=== PATIENT | female | born 1955 | race Caucasian/White ===

== ENCOUNTER → 2024-09-05 07:50 | Outpatient (REF) | payer MEDICARE, SELFPAY ==
--- NOTE | 2024-09-05 | CA_ITS ---
Acquisition Time: 2024-09-05 08:46:11 Total Exercise Time: 00:05:31 Test Indications: CP Medications: ALBUTEROL INHALER Protocol: ALLEN Max HR: 139 BPM 91% of Pred: 152 BPM Max BP: 134/80 mmHG Max Work Load: 4.6 METS Exercise stress test with exercise 5 min 31 sec of Allen stage 1 ( stage held due to inability to walk at faster pace), achieving 91% MPHR, with mild sob, no chest discomfort, without arrythmia, with normotensive response to exercise, without EKG changes meeting criteria for ischemia. Nuclear images pending. Test reviewed with Dr Hernandez. Referred By: Elias Javed Electronically Signed By: ESPERANZA SPENCE
--- OUTSIDE RECORDS SUMMARY | 2024-09-05 07:52 | XMS_ITS | Encounter Summary ---
Author Organization [employer] Address [address] [facility] [address] [place] [address] Care Team Providers Care Vice President Of Sales Name Role Phone Elias Ta MD Primary Care Prov ider Encounter Details Date Type Department Care Team (Latest Contact Info) Description 08/19/2024 Travel Social History Tobacco Use Types Packs/Day Years Used Date Smoking Tobacco: Never Smokeless Tobacco: Never Alcohol Use Standard Drinks/Week Comments Never 0 (1 standard drink = 0.6 oz pur e alcohol) Comments Unknown Sex and Gender Information Value Date Recorded Sex Assigned at Female 08/19/2024 8:18 AM EST Legal Sex Female 8:43 AM EDT Gender Identity Female 08/19/2024 8:18 AM EST Sexual Orientation Straight 08/19/2024 8: 18 AM EST documented as of this encounter Plan of Treatment Upcoming Encounters Date Type Department Care Team (Late st Contact Info) Description 10/18/2024 8:45 AM EDT Office Visit [facility] [address] [place] [address] Elias Ta MD [address] [place] [address] documented as of this encounter Visit Diagnoses Not on filedocumented in this encounter Care Teams Vice President Of Sales Relationship Specialty Start Date End Date Elias Ta MD [address] [place] [address] PCP - General Internal Medicine 08/19/24 documented as of this encounter
--- OUTSIDE RECORDS SUMMARY | 2024-09-05 07:52 | XMS_ITS | Encounter Summary ---
Author Organization [employer] Address 75 [facility] [address] [place] [address] Care Team Providers Care Seam Stay Stitcher Name Role Phone Elias Ta MD Primary Care Prov ider Reason for Referral * Consultation (Routine) - Authorized Specialty Diagnoses / Procedures Referred By Kaylee blount Referred To Contact Cardiology Diagnoses Other chest pain Elias Ta MD [address] [place] [address] Phone: tel: fax: Sunny Gomes MD [address] [address] Phone: tel: fax: Referral ID Status Reason Start Date Expiration Date Visits Requested Visits Authorized [id number] Authorized Specialty Services Required 08/19/2024 08/19/2025 1 1 * Imaging (Routine) - Pending Review Specialty Diagnoses / Procedures Referred By Kaylee blount Referred To Contact Diagnoses Other chest pain Procedures Stress test with myocardial perfusion Elias Ta MD [address] [place] [address] Phone: tel: fax: [address] Phone: tel: fax: Referral ID Status Reason Start Date Expiration Date V isits Requested Visits Authorized [id number] Pending Review 08/19/2024 08/19/2025 3 3 Encounter Details Date Type Department Care Team (Late st Contact Info) Description 08/19/2024 9:00 AM EST Telemedicine [facility] MED & PEDS [address] [place] [address] Elias Ta MD [address] [place] [address] Encounter for medical examination to establish care (Primary Dx); Other chest pain Social History Tobacco Use Types Packs/Day Years Used Date Smoking Tobacco: Never Smokeless Tobacco: Never Tobacco Cessation:Counseling Given: Not Answered Alcohol Use Standard Drinks/Week Comments Never 0 (1 standard drink = 0.6 oz pur e alcohol) Comments Unknown Sex and Gender Information Value Date Recorded Sex Assigned at Female 08/19/2024 8:18 AM EST Legal Sex Female 8:43 AM EDT Gender Identity Female 08/19/2024 8:18 AM EST Sexual Orientation Straight 08/19/2024 8: 18 AM EST documented as of this encounter Progress Notes * Elias Javed MD - 08/19/2024 9:00 AM EST Subjective Patient ID: Malia Tejeda is a 69 y.o. female who presents for No chief complaint on file.. HPI Patient was scheduled for a televisit to establish medical care Review of Systems Constitutional: Negative for chills, fatigue and fever. Respiratory: Negative for cough and shortness of breath. Cardiovascular: Negative for chest pain and palpitations. Objective Physical Exam Neurological: General: No focal deficit present. Mental Status: She is oriented to person, place, and time. Psychiatric: Mood and Affect: Mood normal. Behavior: Behavior normal. 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 All: percocet Meds: - [id number] Other chest pain Seen at [facility], could not complete workup, pending stress test, will place order and refer to cardiology Relevant Orders Stress test with myocardial perfusion Referral to Cardiology documented in this encounter Miscellaneous Notes * Assessment & Plan Note - Elias Javed MD - 08/19/2024 8:48 AM ESTAssociated Problem(s): Other chest pain Seen at [facility], could not complete workup, pending stress test, will place order and refer to cardiology * Assessment & Plan Note - Elias Javed MD - 08/19/2024 8:43 AM ESTAssociated Problem(s): Encounter for medical examination to establish care Last pcp visit 2 years ago ER: chest pain June 2024 Hospitalization: chest pain 2024 PMHx: asthma, Pshx: 2005 carpal tunnel/tendonitis, 2005 bilateral ear, 1998 VIVEK/bso, tummy tck 2004, total knee replacement right 2021, 2022 eye cataract, 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 All: percocet Meds: - G5A1P4 documented in this encounter Plan of Treatment Upcoming Encounters Date Type Department Care Team (Late st Contact Info) Description 10/18/2024 8:45 AM EDT Office Visit [facility] MED & PEDS [address] [place] [address] Elias Ta MD [address] [place] [address] Scheduled Referrals Name Type Priority Associated Diagnoses Order Schedule Referral to Cardiology Outpatient Referral Routine Other chest pain Expected: 08/19/2024 (Approximate), Expires: 08/19/2025 documented as of this encounter Visit Diagnoses Diagnosis Encounter for medical examination to establish care- Primary Other chest pain documented in this encounter Care Teams Seam Stay Stitcher Relationship Specialty Start Date End Date Elias Ta MD [address] [place] [id number] PCP - General Internal Medicine 08/19/24 documented as of this encounter
--- OUTSIDE RECORDS SUMMARY | 2024-09-05 07:52 | XMS_ITS | Clinical Summary ---
Author Organization [employer] Address 75 [facility] 7t [place] [address] Care Team Providers Care Treer Name Role Phone Elias Ta MD Primary Care Prov ider Allergies No known active allergies Medications albuterol 108 (90 Base) MCG/ACT inhaler Inhale 2 puffs every 6 (six) hours if needed for wheezing. 18 g 11 08/19/2024 Active Blood Pressure kit 1 kit Once per day. 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 All: percocet Meds: - G5A1P4 Other chest pain 08/19/2024 Assessment & Plan (08/19/2024 8:48 AM EST): Seen at [facility], could not complete workup, pending stress test, will place order and refer to cardiology Encounters Date Type Department Care Team Description 08/31/2024 Telephone [facility] MEDICINE [address] [place] [address] Elias Ta MD FYI 08/19/2024 9:00 AM EST Telemedicine [facility] MED & PEDS [address] [place] [address] Elias Ta MD Encounter for medical examination to establish care (Primary Dx); Other chest pain 08/19/2024 Travel from Last 3 Months Family History Medical History Relation Name Comments Depression Father Angina Mother Cancer Neg Hx Relation Name Status Comments Father Mother Social History Tobacco Use Types Packs/Day Years [...] Orientation Straight 08/19/2024 8: 18 AM EST Plan of Treatment Upcoming Encounters Date Type Department Care Team ([facility] st Contact Info) Description 10/18/2024 8:45 AM EDT Office Visit [facility] MED & PEDS [address] [place] [address] Elias Ta MD [address] [place] [address] Health Maintenance Due Date Last Done Comments CT Colonography 1956 Colonoscopy 1956 Colorectal Cancer Screening 1956 Depression Screening 1956 FIT DNA/Cologuard 1956 FIT 1956 FOBT 1956 Lipid Panel 1956 SDOH Screening 1956 Sigmoidoscopy 1956 Alcohol/Substance Use Screening 1968 Hepatitis C Screening 1974 Hepatitis A Vaccines (1 of 2 - Risk 2-dose series) 1975 Pneumococcal Vaccine: 50+ Years (1 of 2 - PCV) 1975 Mammogram 1996 Zoster Vaccines (1 of 2) 2006 Hepatitis B Vaccines (1 of 3 - Risk 3-dose series) 2016 RSV Patients and Patients Aged 60 years or older (1 - Risk 60-74 years 1-dose series) 2016 DTaP/Tdap/Td Vaccines (2 - T d or Tdap) 01/06/2024 01/05/2014 COVID-19 Vaccine (3 - 4-2 5 season) 2024 03/31/2021, 03/01/2021 Influenza Vaccine (#1) 2024 , 04/27/2013 Tobacco Screening 08/19/2025 08/19/2024 HIB Vaccines Aged Out No longer eligi ble based on patient's age to complete this topic HPV Vaccines Aged Out No longer eligi ble based on patient's age to complete this topic IPV Vaccines Aged Out No longer eligi ble based on patient's age to complete this topic Meningococcal Vaccine Aged Out No pablito sarah eligible based on patient's age to complete this topic RSV under 20 months Aged Out No longe r eligible based on patient's age to complete this topic Rotavirus Vaccines Aged Out No longer eligible based on patient's age to complete this topic Insurance [facility] MEDICARE ADVANTAGE HMO Care Teams Treer Relationship Specialty Start Date End Date Elias Ta MD [address] [place] [address] PCP - General Internal Medicine 08/19/24
--- OUTSIDE RECORDS SUMMARY | 2024-09-05 07:52 | XMS_ITS | Encounter Summary ---
Author Organization [employer] Address 75 [facility] 7t [place] [address] Care Team Providers Care Gold Miner Blasting Name Role Phone Elias Ta MD Primary Care Prov ider Reason for Visit * Reason Onset Date Comments FYI 08/31/2024 Encounter Details Date Type Department Care Team (Late st Contact Info) Description 08/31/2024 Telephone [facility] MEDICINE [address] [place] [address] Elias Ta MD [address] [place], [place] [phone] FYI Social History Tobacco Use Types Packs/Day Years [...] AM EST documented as of this encounter Miscellaneous Notes * Telephone Encounter - Mary Gonzales RN - 08/31/2024 12:48 PM EST Office is not responsible for calling insurance to name PCP. Pt needs to call to let them know. * Telephone Encounter - Melvina Edmondson - 08/31/2024 11:37 AM EST Tc from pt stating pcp or nurses should call to [facility] to clarify info regarding pt. Pt says it's so they can assign him as PCP. [phone] Pt's documented in this encounter Plan of Treatment Upcoming Encounters Date Type Department Care Team (Late st Contact Info) Description 10/18/2024 8:45 AM EDT Office Visit [facility] MED & PEDS [address] [place], [place] [phone] Elias Ta MD [address] [place] [address] documented as of this encounter Visit Diagnoses Not on filedocumented in this encounter Care Teams Gold Miner Blasting Relationship Specialty Start Date End Date Elias Ta MD [address] [place] [address] PCP - General Internal Medicine 08/19/24 documented as of this encounter
== END ==
LOC: HO.CARD 07:50
PROVIDERS: PCP Internal Medicine; Visit Provider Internal Medicine
DX: R07.89 Other chest pain (principal)
CPT/HCPCS: 78452; 93017; A9500

== ENCOUNTER → 2024-09-05 08:46 | Outpatient (BNV) | payer MEDICARE, SELFPAY | PROVIDERS: PCP Internal Medicine; Visit Provider Nurse Practitioner Family | DX: R06.02 Shortness of breath (principal) | CPT/HCPCS: 78452; 93016; 93018 ==

== ENCOUNTER 2024-11-15 07:27 | Outpatient (AMB) | payer OTHER, MEDICARE, MEDICAID, SELFPAY ==
--- OUTSIDE RECORDS SUMMARY | 2024-11-15 07:29 | XMS_ITS | Encounter Summary ---
Author Organization [employer] Address [address] [facility] 7t [place] [address] Care Team Providers Care Staffing Coordinator Name Role Phone Elias Ta MD Primary Care Prov ider Reason for Visit * Reason Onset Date Comments Medication Question 10/20/2024 Encounter Details Date Type Department Care Team ([facility] st Contact Info) Description 10/20/2024 Telephone [facility] MEDICINE [address] [place] [address] Elias Ta MD [address] [place], [place] [phone] Medication Question Social History Tobacco Use Types Packs/Day Years Used Date Smoking Tobacco: Never Smokeless Tobacco: Never Alcohol Use Standard Drinks/Week Comments Never 0 (1 standard drink = 0.6 oz pur e alcohol) Depression Answer Date Recorded Patient Health Questionnaire-9 Score 0 09/21/2024 Patient Health Questionnaire-9 Score 0 09/21/2024 Last PHQ-9: Questionnaire Data Not on file 0 09/21/2024 Housing Stability Answer Date Recorded What is your housing situation today? I have paul soto 09/21/[address] you li ve. Do you have problems with any of the following? None of the above 09/21/2024 Food Insecurity Answer Date Recorded Within the past 12 months, y ou worried that your food would run out before you got money to buy more: Never True 09/21/2024 Within the past 12 months,th e food you bought just didn't last and you didn't have enough money to get more: Never True Transportation Answer Date Recorded In the past 12 months, has l ack of transportation kept you from medical appts, meetings, work or from getting things needed for daily living? No 09/21/2024 Utilities Answer Date Recorded In the past 12 months, has t he electric, gas, oil or water company threatened to shut off services in your home? No 09/21/2024 Depression Answer Date Recorded Patient Health Questionnaire-2 Score 0 09/21/2024 Internet Access Answer Date Recorded Internet Access Q1 Yes 09/21/2024 Internet Access Q2 Not on file 09/21/2024 Comments Unknown Sex and Gender Information Value Date Recorded Sex Assigned at Female 08/19/2024 8:18 AM EST Legal Sex Female 8:43 AM EDT Gender Identity Female 08/19/2024 8:18 AM EST Sexual Orientation Straight 08/19/2024 8: 18 AM EST documented as of this encounter Miscellaneous Notes * Telephone Encounter - Dana Alejandro RN - 10/20/2024 2:46 PM EDT TC to [facility] in [place]. Per pharmacist patient insurance requires everything to be One Touch Verio * Telephone Encounter - Precious Ni - 10/20/2024 12:54 PM EDT Tc from Pharmacy requesting to re-send medication below as One Touch Verio - Blood Glucose Monitoring Suppl (FreeStyle [place] Lite) w/Device kit - FREESTYLE LITE test strip - Lancets misc documented in this encounter Plan of Treatment Upcoming Encounters Date Type Department Care Team (Late st Contact Info) Description 11/23/2024 10:15 AM EDT Telemedicine [facility] MED & PEDS [address] [place], [place] [phone] Elias Ta MD [address] [place] [address] documented as of this encounter Visit Diagnoses Not on filedocumented in this encounter Additional Health Concerns Assessment Noted Time PHQ-9 Depression Total Score: 0 09/22/19 25 9:19 AM EDT documented as of this encounter Care Teams Staffing Coordinator Relationship Specialty Start Date End Date Elias Ta MD [address] [place] [address] PCP - General Internal Medicine 08/19/24 documented as of this encounter
--- OUTSIDE RECORDS SUMMARY | 2024-11-15 07:29 | XMS_ITS | Encounter Summary ---
Author Organization [employer] Address 75 [facility] 7t [place] [address] Care Team Providers Care Lead Section Supervisor Name Role Phone Elias Ta MD Primary Care Prov ider Reason for Visit * Reason Onset Date Comments Medication Question 11/03/2024 Encounter Details Date Type Department Care Team ([facility] st Contact Info) Description 11/03/2024 Telephone [facility] MEDICINE [address] [place] [address] Elias Ta MD [address] [place], [place] [phone] Medication Question Social History Tobacco Use Types [...] Telephone Encounter - Dana Alejandro RN - 11/03/2024 3:00 PM EDT Spoke with pharmacy. They stated insurance will only cover the One touch. Routing to provider for review. * Telephone Encounter - Melvina Edmondson - 11/03/2024 10:37 AM EDT Tc from Jennifer Franco requesting new scripts for: - Glucose device - Test strip - Lancets ONE TOUCH BRAND To be sent to: [id number] - [place], [place] - [address] [place] [address] AT [facility] & [facility] documented in this encounter Plan of Treatment Upcoming Encounters Date Type Department Care Team (Late st Contact Info) Description 11/23/2024 10:15 AM EDT Telemedicine [facility] MED & PEDS [address] [place], [place] [phone] Elias Ta MD [address] [place] [address] documented as of this encounter Visit Diagnoses Not on filedocumented in this encounter Additional Health Concerns Assessment Noted Time PHQ-9 Depression Total Score: 0 09/22/19 9:19 AM EDT documented as of this encounter Care Teams Lead Section Supervisor Relationship Specialty Start Date End Date Elias Ta MD [address] [place] [id number] PCP - General Internal Medicine 08/19/24 documented as of this encounter
--- OUTSIDE RECORDS SUMMARY | 2024-11-15 07:29 | XMS_ITS | Encounter Summary ---
Author Organization [employer] Address [address] [facility] 7t [place] [address] Care Team Providers Care Bonderite Operator Name Role Phone Elias Ta MD Primary Care Prov ider Reason for Visit * Reason Onset Date Comments FYI 08/31/2024 Encounter Details Date Type Department Care Team (Late st Contact Info) Description 08/31/2024 Telephone [facility] MEDICINE [address] [place] [address] Elias Ta MD [address] [place], [place] [phone] FYI Social History Tobacco Use Types Packs/Day [...] stating pcp or nurses should call to [facility] to clarify info regarding pt. Pt says it's so they can assign him as PCP. [phone] Pt's documented in this encounter Plan of Treatment Upcoming Encounters Date Type Department Care Team (Late st Contact Info) Description 11/23/2024 10:15 AM EDT Telemedicine [facility] MED & PEDS [address] [place] [address] Elias Ta MD [address] [place] [address] documented as of this encounter Visit Diagnoses Not on filedocumented in this encounter Care Teams Bonderite Operator Relationship Specialty Start Date End Date Elias Ta MD [address] [place] [address] PCP - General Internal Medicine 08/19/24 documented as of this encounter
--- OUTSIDE RECORDS SUMMARY | 2024-11-15 07:29 | XMS_ITS | Clinical Summary ---
Author Organization [employer] Address [address] [facility] [address] [place] [address] Care Team Providers Care Ceo And Founder Name Role Phone Elias Ta MD Primary Care Prov ider Allergies No known active allergies Medications albuterol 108 (90 Base) MCG/ACT inhaler Inhale 2 puffs every 6 (six) hours if needed for wheezing. 18 g 11 5 08/19/19 26 Active Blood Pressure kit 1 kit Once per day. 1 kit 5 Active metFORMIN (Glucophage) 500 MG tablet Take 1 tablet (500 mg) by mouth with breakfast and with evening meal. 60 tablet 11 5 10/19/19 26 Active FREESTYLE LITE test strip Use to test blood sugar 2 times daily 100 each 12 5 10/19/19 26 Active Lancets misc Use to test blood sugar 2 times daily 100 each 5 Active Blood Glucose Monitoring Suppl (FreeStyle Selma Lite) w/Device kit Use to test blood sugar 2 times daily 1 kit 5 Active glucose blood (OneTouch Ultra) test strip Use to test blood sugar 2 times daily 100 each 12 5 11/04/19 26 Active Blood Glucose Monitoring Suppl (ONE TOUCH ULTRA 2) w/Device kit Use to test blood sugar 2 times daily 1 kit 5 Active Lancets misc 1 Units 2 times daily. 100 each 5 Active Active Problems Problem Noted Date Diagnosed Date Type 2 diabetes mellitus wit hout complication, without long-term current use of insulin 10/18/2024 Assessment & Plan (10/18/2024 9:53 AM EDT): A1c >9.0%, discussed importance of diet, will start on metformin 500mg bid, follow up in 1 month, she was previously prescribed DM treatmetn but she refused to accept diagnosis, follow up in 1 month Elevated blood pressure reading 10/18/2024 Assessment & Plan (10/18/2024 9:54 AM EDT): Home blood pressure reading have remained below 130/80, encouraged to keep a low sodium diet and exercise as tolerated, keep bp log, follow up in 1 month Encounter for medical examination to establish c [...] Other chest pain 08/19/2024 Assessment & Plan (09/21/2024 10:15 AM EDT): Patient underwent stress test, normal findings, pending cardiology evalaution, Patient was requesting letter to return to work, but hospital discharge refers she has htn/dm/hypercholesterolemia, Will follow up in office to decide if patient can return to work Assessment & Plan (08/19/2024 8:48 AM EST): Seen at [facility], could not complete workup, pending stress test, will place order and refer to cardiology Encounters Date Type Department Care Team Description 11/03/2024 Orders Only [facility] [address] [place] [address] Elias Ta MD 11/03/2024 Telephone [facility] [address] [place] [address] Elias Ta MD Medication Question 10/20/2024 Telephone [facility] [address] [place] [address] Elias Ta MD Medication Question 10/20/2024 Telephone [facility] [address] [place] [address] Elias Ta MD 10/18/2024 8:45 AM EDT Office Visit [facility] [address] [place] [address] Elias Ta MD Type 2 diabetes mellitus without complication, without long-term current use of insulin ([facility]) (Primary Dx); Elevated blood pressure reading 10/18/2024 Travel 09/21/2024 9:30 AM EDT Telemedicine [facility] [address] [place] [address] Elias Ta MD Other chest pain (Primary Dx) 09/21/2024 Travel 09/20/2024 Telephone [facility] [address] [place] [address] Elias Ta MD chart prep 09/19/2024 Telephone [facility] [address] [place] [address] Elias Ta MD Appointment Request 09/09/2024 Telephone [facility] [address] [place] [address] Elias Ta MD 08/31/2024 Telephone [facility] [address] [place] [address] Elias Ta MD FYI 08/19/2024 9:00 AM EST Telemedicine [facility] [address] [place] [address] Elias Ta MD Encounter for medical examination [...] Orientation Straight 08/19/2024 8: 18 AM EST Last Filed Vital Signs Vital Sign Reading Time Taken Comments Blood Pressure 131/78 10/18/2024 8:52 AM EDT Pulse 87 10/18/2024 8:52 AM EDT Temperature 36.6 ??C (97.9 ??F) 10/18/2024 8:52 AM ED T Respiratory Rate 20 10/18/2024 8:52 AM EDT Oxygen Saturation 97% 10/18/2024 8:52 AM EDT Inhaled Oxygen Concentration - - Weight 68.5 kg (151 lb) 10/18/2024 8:52 AM EDT Height - - Body Mass Index - - Plan of Treatment Upcoming Encounters Date Type Department Care Team ([facility] st Contact Info) Description 11/23/2024 10:15 AM EDT Telemedicine [facility] [address] [place] [address] Elias Ta MD [address] [place] [address] Health Maintenance Due Date Last Done Comments CT Colonography 1955 Colonoscopy 1955 Colorectal Cancer Screening 1955 FIT DNA/Cologuard 1955 FIT 1955 FOBT 1955 Lipid Panel 1955 Sigmoidoscopy 1956 Diabetes: Foot Exam 1966 Eye Exam 1966 Hepatitis C Screening 1974 Diabetes: Urine Protein Screening 1975 Hepatitis A Vaccines (1 of 2 - [...] Tdap) 01/06/2024 01/05/2014 COVID-19 Vaccine (3 - 2023-2 5 season) 2024 03/31/2021, 03/01/2021 Influenza Vaccine (#1) 2024 , 04/27/2013 Diabetes: Hemoglobin A1C 01/17/2025 10/18/2024 Tobacco Screening 08/19/2025 08/19/2024 Alcohol/Substance Use Screening 09/21/2025 09/21/2024 Depression Screening 09/21/2025 09/21/2024, 09/21/2024 SDOH Screening 09/21/2025 09/21/2024 HIB Vaccines Aged Out No longer eligi ble based on patient's age to complete this topic HPV Vaccines Aged Out No longer eligi ble based on patient's age to complete this topic IPV Vaccines Aged Out No longer eligi ble based on patient's age to complete this topic Meningococcal B Vaccine Aged Out No l onger eligible based on patient's age to complete this topic Meningococcal Vaccine Aged Out No pablito sarah eligible based on patient's age to complete this topic RSV under 20 months Aged Out No longe r eligible based on patient's age to complete this topic Rotavirus Vaccines Aged Out No longer eligible based on patient's age to complete this topic Procedures Procedure Name Priority Date/Time Associated Diagnosis Comments POCT GLYCATED HEMOGLOBIN, TOTAL Routine 10/18/2024 9:49 AM EDT Type 2 diabetes mellitus without complication, without long-term current use of insulin ([facility]) POCT GLUCOSE Routine 10/18/2024 9:48 AM EDT Type 2 diabetes mellitus without complication, without long-term current use of insulin ([facility]) STRESS TEST WITH MYOCARDIAL PERFUSION Routine 09/05/2024 8:48 AM EDT Other chest pain from Last 3 Months Results * (ABNORMAL) POCT HGB A1C (10/18/2024 9:49 AM EDT) Pathologist [facility] Hemoglobin A1C 9.3(A) 4.0 - 6.0 % QC Media Lot # [id number] Lot# Expiration Date ,026 Blood 10/18/2024 9:49 AM EDT Elias Javed MD POINT OF CARE TEST ENTER/EDIT ORDERABLES Final Result * (ABNORMAL) POCT Glucose (10/18/2024 9:48 AM EDT) Pathologist [facility] Glucose Blood, POC 282(A) 60 - 200 mg/dL QC Media Lot # [id number] Lot# Expiration Date 732,025 Blood Capillary blood specimen / Unknown 10/18/2024 9:48 AM EDT Elias Javed MD POINT OF CARE TEST ENTER/EDIT ORDERABLES Final Result * Stress test with myocardial perfusion (09/05/2024 8:48 AM EDT) 09/05/2024 8:48 AM EDT Narrative [facility] - 09/08/2024 12:17 PM EDT ? [facility] ?[address] ?[place], [place] [address] ?Nuclear Medicine Report ? Signed ? Patient: Nikhil,Malia ?MR#: [id number] ?? 6 ? : 1955 ?Acct:[id number] ? Age/Sex: 69 / F ?ADM Date: 09/05/24 ? Loc: HO.CARD ? Attending Dr: Elias Javed MD ? Ordering Physician: Elias Ta MD ?? Date of Service: 09/05/24 ?? Procedure(s): NM cardiolite stress test ?? Accession Number(s): [id number] ? cc: Elias Ta MD ? EXERCISE MYOCARDIAL PERFUSION STUDY ? INDICATION: ?? Chest pain ? TECHNIQUE: ? The patient was brought in for an exercise perfusion study on ?? 09/05/2024. Patient performed exercise as per Moses protocol and was ?? injected ??25 mCi of sestamibi once target heart rate was achieved. ?? Images were obtained using the SPECT gamma camera interlaced with the ?? gating device. Images were obtained in supine position. ? Resting perfusion study was performed on 09/07/2024. Patient was ?? administered 25 mCi of sestamibi intravenously at rest. Images were ?? then obtained in supine position. Total DLP 105 mGy-cm. ? Images were processed with the software and compared side to side in ?? short axis, horizontal long axis and vertical long axis views. ? FINDINGS: ? Raw aquisition reviewed. ? The stress perfusion study showed ??no significant perfusion ?? abnormality. Both uncorrected as well as CT attenuation corrected ?? images were reviewed. The gated study shows normal LV systolic function ?? with calculated LVEF of 62%. LV cavity is normal in size. The gated ?? study shows normal ??wall thickening and contraction of segments. ? Resting study shows no significant perfusion abnormality. Gating at ?? rest reveals normal wall motion with ejection fraction at 72%. ? The findings are consistent with no clear reversible or fixed perfusion ?? abnormality. ? NM/NM cardiolite stress test ?? IMPRESSION: ? 1. ??Myocardial perfusion imaging study shows normal myocardial ?? perfusion. ?? 2. ??Gated LVEF is 62% during stress and 70% during rest. ?? 3. Transient ischemic dilatation not present. ? EKG component of the test reported separately. ? Electronically signed by: ??Yunior Hernandez MD ??09/08/2024 12:15 ?? PM EDT RP ? Dictated By: ?Yunior Hernandez MD ? Signed By: ?<Electronically signed by Yunior Hernandez MD in OV> ?09/08/24 1215 ? DD/ 0848 ? TD/TT: 09/07/24 0850 ? Weigher And Grader: ? Procedure Note [place], Image - 09/08/2024 [place] [address] Nuclear Medicine Report Signed Patient: Buffy Tejeda#: [id number] 6 : 1955cct:[id number] Age/Sex: 69 / FADM Date: 09/05/24 Loc: [facility] Attending Dr: Elias Javed MD Ordering Physician: Elias Ta MD Date of Service: 09/05/24 Procedure(s): NM cardiolite stress test Accession Number(s): [id number] cc: Elias Ta MD EXERCISE MYOCARDIAL PERFUSION STUDY INDICATION: Chest pain TECHNIQUE: The patient was brought in for an exercise perfusion study on 09/05/2024. Patient performed exercise as per Moses protocol and was injected 25 mCi of sestamibi once target heart rate was achieved. Images were obtained using the SPECT gamma camera interlaced with the gating device. Images were obtained in supine position. Resting perfusion study was performed on 09/07/2024. Patient was administered 25 mCi of sestamibi intravenously at rest. Images were then obtained in supine position. Total DLP 105 mGy-cm. Images were processed with the software and compared side to side in short axis, horizontal long axis and vertical long axis views. FINDINGS: Raw aquisition reviewed. The stress perfusion study showed no significant perfusion abnormality. Both uncorrected as well as CT attenuation corrected images were reviewed. The gated study shows normal LV systolic function with calculated LVEF of 62%. LV cavity is normal in size. The gated study shows normal wall thickening and contraction of segments. Resting study shows no significant perfusion abnormality. Gating at rest reveals normal wall motion with ejection fraction at 72%. The findings are consistent with no clear reversible or fixed perfusion abnormality. NM/NM cardiolite stress test IMPRESSION: 1. Myocardial perfusion imaging study shows normal myocardial perfusion. 2. Gated LVEF is 62% during stress and 70% during rest. 3. Transient ischemic dilatation not present. EKG component of the test reported separately. Electronically signed by: Yunior Hernandez MD 09/08/2024 12:15 PM EDT RP Dictated By: Yunior Hernandez MD Signed By: <Electronically signed by Yunior Hernandez MD inOV> 09/08/24 1215 DD/ 0848 TD/TT: 09/07/24 0850 Weigher And Grader: us Elias Javed MD CV STRESS PROCEDUR ES Edited Result - Final [facility] [address] [place] [address] from Last 3 Months Insurance [employer] HMO Care Teams Ceo And Founder Relationship Specialty Start Date End Date LrElias Lopez MD [address] [place] [id number] PCP - General Internal Medicine 08/19/24
--- NOTE | 2024-11-15 08:30 | MHC.OFFVIS ---
Vital Signs 11/15/24 08:31 Height 4 ft 11 in Weight 148 lb 9.465 oz BMI 30.0 BP 130/62 Blood Pressure Location Lt brachial Position Sitting Pulse 74 Pulse Source Monitor Intake Visit Reasons: MAJOR GENERAL/Dr. Lr/Chest pain Delivery Table Operator Required: Yes Delivery Table Operator Language: Ladle Liner Name: voyce/frisian/ Accompanied by: Self / Same As Patient Allergies perfume Adverse Reaction (Mild, Unverified 03/15/20 16:36) HEADACHES,DIZZY Medication List - Last Reconciled 11/15/24 by Yunior Hernandez MD No Known Home Meds HPI Comments Details: Malia is here for consultation regarding chest pains. Few months back, it seems that she had an episode of chest discomfort and that led to hospitalization at [facility]. She states that she has had acid reflux type symptoms at different times related to food intake but no clear-cut cardiac history. Per [facility] discharge summary, mentioned of burning chest pain, dizziness, vomiting, some reproducible in nature. It seems that they tried to do a stress test but patient had signed out against that. She states she did not get any further chest pain after that and she is back to normal self. Active with no limitations. No exertional intolerance. She has listed comorbidities but does not seem to be any medications for any of them. 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 [facility] Medical History (Updated 11/15/24 @ 08:54 by Yunior Hernandez MD) Gastritis Hypertension Hyperlipidemia Type 2 diabetes mellitus Chronic GERD Asthma Family History (Updated 11/15/24 @ 08:34 by Анна Hdz CMA) Mother No problems noted. Father No problems noted. Social History (Updated 11/15/24 @ 08:34 by Анна Hdz CMA) Alcohol intake: never Patient Tobacco Use Status: Never used Tobacco Review of Systems Const Denies chills, Denies fatigue, Denies fever(s), Denies frequent falls, Denies weakness, Denies weight gain and Denies weight loss ENT Denies dizziness Card Denies chest pain, Denies leg edema, Denies lightheadedness, Denies palpitations, Denies dyspnea, Denies dyspnea on exertion and Denies orthopnea Resp Denies cough, Denies dyspnea and Denies dyspnea on exertion GI Denies bloating and Denies change in bowel habits Musc Denies muscle weakness, Denies numbness and Denies tingling Neuro Denies dizziness, Denies frequent falls, Denies numbness, Denies tingling and Denies weakness Endo Denies fatigue and Denies palpitations Physical Exam Vital Signs: Last Vital Signs Pulse 74 11/15/24 08:31 BP 130/62 11/15/24 08:31 BMI result Body Mass Index 30.0 Const General: comfortable and no acute distress Orientation/consciousness: patient oriented x3 HEENT Other: Unremarkable Head: Yes normal to inspection Neck Neck: Yes normal visual inspection Chest Chest palpation & inspection: normal inspection of the chest Resp Auscultation: clear to auscultation bilaterally Cardio Palpation: normal PMI Heart sounds: S1 normal heart sound present, S2 normal heart sound present, no gallops, no murmurs and no rubs GI Palpation (GI): Soft to palpation Back/Spine/Pelvis Other: unremarkable Skin General skin exam: no rashes or lesions noted Neuro General: patient oriented x3 Extrem General: Yes normal to inspection Psych Mental Status: mental status grossly normal Office Procedures EKG Details: EKG with underlying sinus rhythm at 74/Min; sinus arrhythmias; leftward axis; right bundle-branch block; [place]. [id number], Complete Assessment & Plan Assessment & Plan (1) Precordial chest pain: Code(s): R07.2 - Precordial pain Category: Medical Plan Per [facility] records, high sensitivity troponin within range. Echocardiogram with LVEF of 50-55%. No significant valvular findings. In the stress test, she was able to exercise for 4.6 METS; reached 91% of target heart rate without any angina. No EKG evidence of ischemia. Normal perfusion. Overall, isolated episode of chest discomfort in the background of acid reflux. Unremarkable perfusion imaging. No recurring symptoms and unlimited exercise tolerance. In this instance, continue to observe. If indeed she gets recurrent pains, then we will reassessment. Discussed about this today and she agrees. Discussion Notes I discussed with the patient the results of her previous cardiac evaluations, which were reported as normal. I explained to her that her symptoms of chest pain appear to be linked to gastroesophageal reflux disease, especially given the correlation with dietary intake. I reassured her that her current capacity for exercise and absence of chest pain are positive indicators of her cardiac status. We discussed managing GERD through dietary changes and monitoring symptoms. I advised her to return if symptoms of chest pain recurred or worsened. Patient was informed and verbally consented to the use of an ambient scribe for clinic note documentation during this visit. Patient Instructions: - Continue your current diet but avoid foods that cause reflux. - Monitor for any return or worsening of chest pain. - Exercise as tolerated, with no restrictions. - Call us if chest pain returns or if there are any new symptoms. Coding Level of Care Code New Pt Level 4 (44203) Diagnoses Precordial chest pain R07.2 CPT Codes EKG - CPT: 14319-Bteiploudjefupnic, Complete ([id number])
[2024-11-15 08:31] VITALS: BP 130/62; PULSE 74
== END 2024-11-15 09:04 | disposition home or self-care (01) ==
PROVIDERS: PCP Internal Medicine; Visit Provider Internal Medicine
DX: R07.2 Precordial pain (principal); R94.31 Abnormal electrocardiogram [ECG] [EKG]
CPT/HCPCS: 93010; 99214

== ENCOUNTER → 2024-11-15 07:27 | Outpatient (BNVA) | payer MEDICARE, MEDICAID, SELFPAY | PROVIDERS: PCP Internal Medicine; Visit Provider Internal Medicine | DX: R07.9 Chest pain, unspecified (principal) | CPT/HCPCS: 93005 ==

== ENCOUNTER 2025-05-19 15:34 | Outpatient (REF) | payer MEDICARE, OTHER, SELFPAY ==
--- NOTE | ~2025-05-19 | US_ITS ---
EXAMINATION: US THYROID HISTORY: Incidental finding of a 1.7 cm thyroid nodule of the left lobe TECHNIQUE: Real-time grayscale ultrasound imaging was performed and images were reviewed. COMPARISON: There are no prior studies available for comparison. FINDINGS: SIZE: The right thyroid lobe measures 4.2 x 1.2 x 1.3 cm. The left thyroid lobe measures 4.4 x 2.1 x 1.8 cm. The isthmus measures 2 mm. FLOW: Flow to the gland is normal. ECHOGENICITY: The echotexture of the gland is heterogeneous. NODULES: There are nodules noted bilaterally as described below: Nodule #: 1 Location: Midportion of the right thyroid lobe measuring 4 x 2 x 3 mm. Shape: Wider than tall (0 points) Margins: Smooth (0 points) Echotexture: Hypoechoic (2 points) Composition: Solid (2 points) Calcifications: None (0 points) Total points: 4 TIRADS: TR4: Moderately suspicious. Nodule #: 2 Location: Lower pole of the right thyroid lobe measuring 1.5 x 1.2 x 0.7 cm. Shape: Taller than wide (3 points) Margins: Ill-defined (0 points) Echotexture: Hypoechoic (2 points) Composition: Mostly solid (2 points) Calcifications: None (0 points) Total points: 7 TIRADS: TR5: Highly suspicious. Nodule #: 3 Location: Midportion of the left thyroid lobe measuring 2.3 x 1.6 x 1.6 cm. Shape: Wider than tall (0 points) Margins: Ill-defined (0 points) Echotexture: Isoechoic (1 point) Composition: Mostly solid (2 points) Calcifications: Macrocalcifications (1 point) Total points: 4 TIRADS: TR4: Moderately suspicious. US/US thyroid IMPRESSION: Bilateral thyroid nodules as described. Both of the nodule at the lower pole of the right thyroid lobe (#2 above) and in the midportion of the left thyroid lobe (#3 above) should undergo fine-needle aspiration per ACR TI-RADS guidelines below. ACR TI-RADS Guidelines TR1 (0 points): Benign. No follow-up or biopsy required TR2 (2 points): Not Suspicious. No biopsy or follow up indicated TR3 (3 points): Mildly Suspicious. FNA if >= 2.5 cm, Follow if >= 1.5 cm TR4 (4-6 points): Moderately Suspicious. FNA if >= 1.5 cm, Follow if >= 1.0 cm TR5 (>=7 points): Highly Suspicious. FNA if >= 1.0 cm, Follow if >= 0.5 cm Electronically signed by: Angel Luis Holloway MD 05/22/2025 07:11 AM CONTRERAS
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
--- OUTSIDE RECORDS SUMMARY | 2025-05-19 15:38 | XMS_ITS | Encounter Summary ---
Author Organization [employer] Address [address] [facility] [address] [place] [address] Care Team Providers Care Furnace Door Tender Name Role Phone Elias Ta MD Primary Care Prov ider Reason for Visit * Reason Onset Date Comments FYI 08/31/2024 Encounter Details Date Type Department Care Team (Late st Contact Info) Description 08/31/2024 Telephone [facility] MEDICINE [address] [place] [address] Elias Ta MD [address] [place], [place] [phone] FYI Social History Tobacco Use Types Packs/Day [...] stating pcp or nurses should call to [facility] to clarify info regarding pt. Pt says it's so they can assign him as PCP. [phone] Pt's documented in this encounter Plan of Treatment Upcoming Encounters Date Type Department Care Team (Late st Contact Info) Description 08/07/2025 11:00 AM EST Office Visit [facility] OPTOMETRY [address] [place], [place] [phone] Helen Noel, OD [address] [place] [address] documented as of this encounter Visit Diagnoses Not on filedocumented in this encounter Care Teams Furnace Door Tender Relationship Specialty Start Date End Date Elias Ta MD [address] [place] [phone] PCP - General Internal Medicine 08/19/24 documented as of this encounter
--- OUTSIDE RECORDS SUMMARY | 2025-05-19 15:38 | XMS_ITS | Clinical Summary ---
Author Organization [facility] Address [address] [place] [address] Phone Care Team Providers Care Front Sight Attacher Name Role Phone Unavailable Primary Care Provider Unavailabl e Encounters Date Type Department Care Team Description 04/23/2025 8:24 AM EDT - 04/23/2025 11:59 PM EDT Hospital Encounter [facility] MRI [address] [place] [phone] Strain of muscle, fascia and tendon at neck level, initial encounter Discharge Disposition: Home or Self Care 04/23/2025 8:23 AM EDT - 04/23/2025 11:59 PM EDT Hospital Encounter [facility] MRI [address] [place] [address] Strain of muscle, fascia and tendon at neck level, initial encounter Discharge Disposition: Home or Self Care from Last 3 Months Social History Tobacco Use Types Packs/Day Years Used Date Smoking Tobacco: Never Assessed Comments Unknown Sex and Gender Information Value Date Recorded Sex Assigned at Not on file Legal Sex Female 11:36 PM EST Gender Identity Not on file Sexual Orientation Not on file Plan of Treatment Health Maintenance Due Date Last Done Comments Breast Cancer Screening 1956 Diabetes: Annual GFR (Glomer ular Filtration Rate) 1956 Diabetes: Annual Foot Exam 1966 Diabetes: Annual Retina Eye Exam 1966 DTaP,Tdap,and Td Vaccines (1 - Tdap) 1975 Pneumococcal Vaccine: 50+ Ye ars (1 of 1 - PCV) 2006 Zoster Vaccines (1 of 2) 2006 Cholesterol Screening (Lipid Panel) 06/01/2022 Falls Risk Assessment 06/01/2022 Hepatitis C Screening 06/01/2022 Medicare Annual Wellness Visit 06/01/2022 Osteoporosis Screening (Bone Density Screening) 06/01/2022 Social Influencers of Health Screening 06/01/2022 Depression Screening 06/29/2024 COVID-19 Vaccine (1 - 2024-2 6 season) 2025 Influenza Vaccine (#1) 2025 Diabetes: Annual Urine Albumin-Creatinine Ratio (uACR) 04/23/2025 Diabetes: Blood Sugar Contro l Test (HGBA1C) 04/23/2025 10/18/2024 Colorectal Cancer Screening: FIT-DNA (Cologuard) 12/10/2027 12/09/2024 RSV Immunization Adult Patie nts (1 - 1-dose 75+ series) 2031 HIB Vaccines Aged Out No longer eligi ble based on patient's age to complete this topic HPV Vaccines Aged Out No longer eligi ble based on patient's age to complete this topic Hepatitis A Vaccines Aged Out No long er eligible based on patient's age to complete this topic Hepatitis B Vaccines Aged Out No long er eligible based on patient's age to complete this topic IPV Vaccines Aged Out No longer eligi ble based on patient's age to complete this topic MMR Vaccines Aged Out No longer eligi ble based on patient's age to complete this topic Meningococcal ACWY Vaccine Aged Out N o longer eligible based on patient's age to complete this topic Meningococcal B Vaccine Aged Out No l onger eligible based on patient's age to complete this topic RSV Immunization Patients Un maria isabel 20 months Aged Out No longer eligible b ased on patient's age to complete this topic Varicella Vaccines Aged Out No longer eligible based on patient's age to complete this topic Procedures Procedure Name Priority Date/Time Associated Diagnosis Comments MR LUMBAR SPINE WO CONTRAST Routine 04/23/2025 9:41 AM EDT Strain of muscle, fascia and tendon at neck level, initial encounter MR CERVICAL SPINE WO CONTRAST Routine 04/23/2025 9:20 AM EDT Strain of muscle, fascia and tendon at neck level, initial encounter from Last 3 Months Results * MR Lumbar Spine wo Contrast (04/23/2025 9:41 AM EDT) Anatomical Region Laterality Modality L-spine, Spine Magnetic Resonan ce 04/24/2025 3:36 AM EDT Impressions 04/24/2025 3:45 AM EDT Scan sensitivity is degraded due to motion Multilevel lumbar spondylosis, most significant at L4-L5 -------- FINAL REPORT -------- Dictated By: Pati Gonzales Dictated Date: 04/24/2025 03:36 ET Assigned Physician: Pati Gonzales Reviewed and Electronically Signed By: Pati Gonzales Signed Date: 04/24/2025 03:45 ET Workstation ID: [id number] Transcribed By: Self Edit Transcribed Date: 04/24/2025 03:36 ET Narrative 04/24/2025 3:45 AM EDT INDICATION: strain of muscle COMPARISON: None TECHNIQUE: Multiplanar, multisequence MRI was performed of the lumbar spine without IV contrast. FINDINGS: Study assumes 5 lumbar type vertebral bodies. Vertebral body heights and alignment are preserved. Conus terminates at L1. Bone marrow signal is heterogeneous with osteophyte formation along the superior L2 vertebral body with associated bone marrow edema. Multilevel disc desiccation and disc space height loss, most significant at L4- L5. Visualized cord signal is unremarkable. Specific findings are seen at the following levels: T12-L1:No significant spinal canal stenosis or neural foraminal narrowing on sagittal view L1-L2:Within the confines of motion, diffuse disc bulge with facet arthropathy without significant spinal canal stenosis or neural foraminal narrowing L2-L3:Within the confines of motion, mild diffuse disc bulge with facet arthropathy with mild left-sided neural foraminal narrowing. No significant spinal canal stenosis. L3-L4:Mild diffuse disc bulge with facet arthropathy without significant spinal canal stenosis. Mild left-sided neural foraminal narrowing. L4-L5:Diffuse disc bulge with bilateral facet arthropathy which effaces the ventral thecal sac and results in moderate to severe bilateral neural foraminal narrowing with touching of the exiting bilateral L4 nerve roots. Right-sided perineural cyst. L5-S1:Diffuse disc bulge with bilateral facet arthropathy without significant spinal canal stenosis. Mild bilateral neural foraminal narrowing. Miscellaneous: Visualized SI joints, paraspinal muscles and retroperitoneum are unremarkable. Procedure Note Pati Gonzales MD - 04/24/2025 INDICATION: strain of muscle COMPARISON: None TECHNIQUE: Multiplanar, multisequence MRI was performed of the lumbarspine without IV contrast. FINDINGS: Study assumes 5 lumbar type vertebral bodies. Vertebral body heights andalignment are preserved. Conus terminates at L1. Bone marrow signal isheterogeneous with osteophyte formation along the superior L2 vertebralbody with associated bone marrow edema. Multilevel disc desiccation anddisc space height loss, most significant at L4- L5. Visualized cord signalis unremarkable. Specific findings are seen at the following levels: T12-L1:No significant spinal canal stenosis or neural foraminal narrowingon sagittal view L1-L2:Within the confines of motion, diffuse disc bulge with facetarthropathy without significant spinal canal stenosis or neural foraminalnarrowing L2-L3:Within the confines of motion, mild diffuse disc bulge with facetarthropathy with mild left-sided neural foraminal narrowing. Nosignificant spinal canal stenosis. L3-L4:Mild diffuse disc bulge with facet arthropathy without significantspinal canal stenosis. Mild left-sided neural foraminal narrowing. L4-L5:Diffuse disc bulge with bilateral facet arthropathy which effacesthe ventral thecal sac and results in moderate to severe bilateral neuralforaminal narrowing with touching of the exiting bilateral L4 nerve roots.Right-sided perineural cyst. L5-S1:Diffuse disc bulge with bilateral facet arthropathy withoutsignificant spinal canal stenosis. Mild bilateral neural foraminalnarrowing. Miscellaneous: Visualized SI joints, paraspinal muscles andretroperitoneum are unremarkable. IMPRESSION: Scan sensitivity is degraded due to motion Multilevel lumbar spondylosis, most significant at L4-L5 -------- FINAL REPORT -------- Dictated By: Pati Gonzales Dictated Date: 04/24/2025 03:36 ET Assigned Physician: Pati Gonzales Reviewed and Electronically Signed By: Pati Gonzales Signed Date: 04/24/2025 03:45 ET Workstation ID: [id number] Transcribed By: Self Edit Transcribed Date: 04/24/2025 03:36 ET us Meek Villagomez MD [facility] [place] PROCEDURES Final Res ult * MR Cervical Spine wo Contrast (04/23/2025 9:20 AM EDT) Anatomical Region Laterality Modality C-spine, Spine Magnetic Resonan ce 04/27/2025 10:1 7 AM EDT Impressions 04/27/2025 10:21 AM EDT Mild degenerative changes in the cervical spine without high-grade foraminal or spinal canal stenosis. -------- FINAL REPORT -------- Dictated By: BINA HEMPHILL Dictated Date: 04/27/2025 10:17 ET Assigned Physician: BINA HEMPHILL Reviewed and Electronically Signed By: BINA HEMPHILL Signed Date: 04/27/2025 10:21 ET Workstation ID: [id number] Transcribed By: Self Edit Transcribed Date: 04/27/2025 10:17 ET Narrative 04/27/2025 10:21 AM EDT PROCEDURE: Cervical spine MRI INDICATION: Muscle strain TECHNIQUE: Multiplanar, multisequence MRI of the Cervical spine Without contrast. COMPARISON: No priors available. FINDINGS: Cervical lordosis is maintained. No fracture or suspicious marrow replacing lesion. Mild degenerative loss of normal disc height and signal at C6-7. Degenerative cervical facet arthritis, most pronounced on the left at C7-T1 and C6-7. Cervical cord is normal in signal and morphology. No epidural collection or mass is seen within the spinal canal. Paraspinal muscles are within normal limits. Foramen magnum is normal. Findings by level: C2-C3: No focal disc protrusion, foraminal stenosis, or spinal canal stenosis. C3-C4: No focal disc protrusion, foraminal stenosis, or spinal canal stenosis. C4-C5: No focal disc protrusion, foraminal stenosis, or spinal canal stenosis. C5-C6: No focal disc protrusion, foraminal stenosis, or spinal canal stenosis. C6-C7: Small posterior disc osteophyte complex with left greater than right facet arthropathy. Mild left and no right foraminal stenosis. Mild spinal canal stenosis. C7-T1: No focal disc protrusion, foraminal stenosis, or spinal canal stenosis. Procedure Note Bina Hemphill MD - 04/27/2025 PROCEDURE: Cervical spine MRI INDICATION: Muscle strain TECHNIQUE: Multiplanar, multisequence MRI of the Cervical spine Withoutcontrast. COMPARISON: No priors available. FINDINGS: Cervical lordosis is maintained. No fracture or suspicious marrow replacing lesion. Mild degenerative loss of normal disc height and signal at C6-7. Degenerative cervical facet arthritis, most pronounced on the left atC7-T1 and C6-7. Cervical cord is normal in signal and morphology. No epidural collectionor mass is seen within the spinal canal. Paraspinal muscles are within normal limits. Foramen magnum is normal. Findings by level: C2-C3: No focal disc protrusion, foraminal stenosis, or spinal canalstenosis. C3-C4: No focal disc protrusion, foraminal stenosis, or spinal canalstenosis. C4-C5: No focal disc protrusion, foraminal stenosis, or spinal canalstenosis. C5-C6: No focal disc protrusion, foraminal stenosis, or spinal canalstenosis. C6-C7: Small posterior disc osteophyte complex with left greater thanright facet arthropathy. Mild left and no right foraminal stenosis. Mildspinal canal stenosis. C7-T1: No focal disc protrusion, foraminal stenosis, or spinal canalstenosis. IMPRESSION: Mild degenerative changes in the cervical spine without high-gradeforaminal or spinal canal stenosis. -------- FINAL REPORT -------- Dictated By: BINA HEMPHILL Dictated Date: 04/27/2025 10:17 ET Assigned Physician: BINA HEMPHILL Reviewed and Electronically Signed By: BINA HEMPHILL Signed Date: 04/27/2025 10:21 ET Workstation ID: [id number] Transcribed By: Self Edit Transcribed Date: 04/27/2025 10:17 ET Meek Villagomez MD IMG MRI PROCEDURES Final Res ult from Last 3 Months Insurance MEDICAID - [place] [employer] MEDICARE
--- OUTSIDE RECORDS SUMMARY | 2025-05-19 15:38 | XMS_ITS | Encounter Summary ---
Author Organization [employer] Address [address] [facility] [address] [place] [address] Care Team Providers Care Food Service Technician Name Role Phone Elias Ta MD Primary Care Prov ider Encounter Details Date Type Department Care Team ([facility] st Contact Info) Description 01/10/2025 Orders Only [facility] CHC MED & PEDS [address] [place], [place] [phone] Elias Ta MD [address] [place], [place] [phone] Social History Tobacco Use Types Packs/Day Years [...] Description 08/07/2025 11:00 AM EST Office Visit [facility] OPTOMETRY [address] [place] [address] TarkaHelen, OD [address] [place] [address] documented as of this encounter Visit Diagnoses Not on filedocumented in this encounter Additional Health Concerns Assessment Noted Time PHQ-9 Depression Total Score: 0 09/22/19 25 9:19 AM EDT documented as of this encounter Care Teams Food Service Technician Relationship Specialty Start Date End Date Elias Ta MD [address] [place] [address] PCP - General Internal Medicine 08/19/24 documented as of this encounter
--- OUTSIDE RECORDS SUMMARY | 2025-05-19 15:38 | XMS_ITS | Encounter Summary ---
Author Organization [employer] Address [address] [facility] [address] [place] [address] Care Team Providers Care Lithograph Press Feeder Name Role Phone Elias Ta MD Primary Care Prov ider Reason for Visit * Reason Onset Date Comments Medication Question 11/03/2024 Encounter Details Date Type Department Care Team ([facility] st Contact Info) Description 11/03/2024 Telephone [facility] MEDICINE [address] [place] [address] Elias Ta MD [address] [place], [place] [phone] Medication Question Social History Tobacco Use Types [...] ONE TOUCH BRAND To be sent to: [facility][id number] - [address] AT [facility] & [facility] documented in this encounter Plan of Treatment Upcoming Encounters Date Type Department Care Team (Late st Contact Info) Description 08/07/2025 11:00 AM EST Office Visit [facility] OPTOMETRY [address] [place] [address] Helen Noel, OD [address] [place] [address] documented as of this encounter Visit Diagnoses Not on filedocumented in this encounter Additional Health Concerns Assessment Noted Time PHQ-9 Depression Total Score: 0 09/22/19 9:19 AM EDT documented as of this encounter Care Teams Lithograph Press Feeder Relationship Specialty Start Date End Date Elias Ta MD [address] [place] [id number] PCP - General Internal Medicine 08/19/24 documented as of this encounter
--- OUTSIDE RECORDS SUMMARY | 2025-05-19 15:38 | XMS_ITS | Data Portability ---
Author Organization [place] - [facility], Allergy Address [address] [place] [id number] Assessment Encounter Date Assessment Date Assessment LastModified by Organization Details LastModified Time 10/17/2024 10/17/2024 Cerumen successfully removed from the left ear, which patient tolerated well. Exam otherwise remarkable for significant crepitus of the TM joint. The patient complains of intermittent bilateral periauricular discomfort. Physical exam reveals no identifiable source of these symptoms involving the auricle, external auditory canal, or tympanic membrane. Audiometric testing and tympanometry are similarly unrevealing. Furthermore, examination was positive for crepitus and tenderness of the bilateral jaw joint and nicholas-TMJ musculature. The patient's periauricular discomfort is most likely consistent with intermittent inflammation of the jaw joint or spasm of the surrounding musculature. This is likely exacerbated by dental clenching and grinding . I recommended the patient use light massage, warm compresses and anti-inflammator ies for symptomatic management. Stressed chewing evenly on both sides of the mouth to keep from overworking the jaw joint. Use soft food diet as needed. Jaw Joint Program information sheet was shared. If this treatment plan is ineffective, recommend follow up with their dentist.Referral to physical therapist who specializes in TMJ disorders could also be considered Audiometric testing demonstrates bilateral neurosensory hearing loss without significant asymmetry. Speech recognition is good and amplification is not currently indicated. Recommend repeat audiometric testing in 1-2 years or with perceived change. [email or web address] Not available 10/17/2024 11:30:04 Plan of Treatment Reminders Order Date Submit Date Provider Last Modified By Organization Details Last Modified Time Details Appointments None record ed. Lab None record ed. Referral None record ed. Procedures None record ed. Surgeries None record ed. Imaging None record ed. Medication Orders None record ed. Patient TargetsNo targets recorded. Patient InstructionsNo instructions recorded. Reason for Referral None Reported. Results Created Date Observation Date Name Description Value Unit Range Abnormal Flag Note LastModifiedBy Organization Detail LastModifiedTime 10/18/19 25 audio gram No observ ation record ed. BARCODE Not Available 2024 12:18:22 Result Notes None recorded. Problems Name Problem SNOMED Code Status Onset Date Resolution Date Notes Provider Name and Address Organization Details Recorded Time Impacted cerumen in left ear 7350027766811 101 Active 2024 Radha zambrano [place] - [facility] 5 09:56:42 Sensorineur al hearing loss of bilateral ears 257282371 Active 2024 IAN HAMMOND , [facility] [address] [facility],[address], [phone], [facility] - [facility] 5 10:46:22 Bilateral temporomand ibular joint pain 9672043311691 9105 Active 2024 Radha zambrano [place] - [facility] 5 11:30:08 Problem Notes None recorded. Procedures Surgical History Date Name Laterality Status Provider Name and Address Organization Details Recorded Time 5 Comp Audio with Tymps - 83723 & 16856 completed IAN HAMMOND, AUD [address] [facility],[address], [phone], [facility] - [facility] 10/17/2024 10:46:11 5 Cerumen removal without microscope left completed Radha Garcia [place] - [facility] 10/17/2024 09:56:33 Imaging Results None recorded. Procedure Notes None recorded. Medical Equipment None Reported. Medications Name Sig Start Date Stop Date Status Note LastModified by Organization Details LastModified Time desonide 0.05 % topical cream APPLY TOPICALLY TO THE AFFECTED AREA TWICE DAILY FOR 7 DAYS active Not Available Not Available No t Available prednisone 50 mg tablet TAKE 1 TABLET BY MOUTH DAILY FOR 5 DAYS 10/17 completed Not Available Not Available Not Available albuterol sulfate HFA 90 mcg/actuati on aerosol inhaler INHALE 2 PUFFS BY MOUTH EVERY 6 HOURS NEEDED FOR WHEEZING active Not Available Not Available No t Available betamethaso ne dipropionat e 0.05 % topical ointment USE 1 APPLICATI ON TOPICALLY DAILY AT BEDTIME APPLY A THIN FILM TO EXTERNAL VAGINAL AREA FOR 3 MONTHS AND THEN 1 TO 2 TIMES PER WEEK active Not Available Not Available No t Available blood pressure test kit-large cuff Check blood pressure on arm as directed active Not Available Not Available No t Available Vyzulta 0.024 % eye drops INSTILL 1 DROP IN BOTH EYES EVERY NIGHT active Not Available Not Available No t Available Vitals Date Recorded Body height Body mass index (BMI) Body weight Provider Name and Address Organization Details Last Updated DateTime 10/17/2024 149.86 cm 29.7 kg/m2 56513.08 g Irish Fournier [place] - [facility] 10/17/2024 09:42:09 Social History None recorded. Functional Status None recorded. Mental Status None recorded. Family History Nothing Reported. Medical History Condition Response Allergies/Hayfever N Heart Problems Y Anxiety N Tonsil Infections N Emphysema N Migraines N Thyroid Problems N Glaucoma N Depression N COPD N Developmental Delay N Nasal or Sinus Problems N Anemia N Immune System Disorder N Anesthesia Complications N Heart Attack ([place]) Y Other Skin Condition N Diabetes N Rhinitis N Bleeding Disorder N Food Allergy N Arthritis Y Hearing Loss N Hyperlipidemia N Cancer N Stroke N Dementia N Nasal polyps N Asthma Y High Cholesterol N Sleep Disorder N GERD/Reflux N Liver Disease N Headaches N Fibromyalgia N Hypertension N Speech Delay N Kidney Disease N Gynecological HistoryNo gynecological history recorded. Obstetrics History GPAL:G 0 P 0 0 0 0 Past Encounters Encounter ID Performer Location Encounter Start Date Encounter Closed Date Diagnosis/Indication Diagnosis SNOMED-CT Code Diagnosis ICD10 Code Diagnosis IMO Codes Diagnosis Note [id number] RADHA GARCIA PA-C [facility] [address] [address] 10/17/2024 09:11:41 10/17/2024 11:06:29 Impacted cerumen in left ear 1252135668 708988 H61.22 Sensorineu ral hearing loss of bilateral ears 504531132 H90.3 Audiologic al evaluation results: Right ear: Normal sloping to a mild sensorineu ral hearing loss with excellent word recognitio n. Left ear: Normal sloping to a moderate sensorineu ral hearing loss with excellent word recognitio n. Tympanomet ry: Right Ear:Type A Left Ear:Type A Bilateral temporomandibular joint pain 0866031471 3050254 M26.623 Health Concerns Section Related Observation LastModified by Organization Detai ls LastModified Time None Recorded Concern Status LastModified by Organization Details LastModified Time None Recorded Advance Directives Directive None Recorded Payers Insurance Date Sequence Insurance Name Policy Number Policy Garnett Covered Member ID Garnett Member ID Guarantor Name 10/17/2024 1 [place] B[place]: [employer] Malia Tejeda [id number] Malia Tejeda 10/17/2024 1 [place] [facility] Malia Tejeda [id number] Malia Tejeda 10/17/2024 1 [facility] (MEDICARE REPLACEMENT/ ADVANTAGE - HMO) [id number] Malia Tejeda [id number] Malia Tejeda Notes Date Note Type Note Provider Name and Address Organization Details Recorded Time 10/17/2024 text/html ROS as noted in the HPI 69 year old female presents for evaluation of the ears. She reports a history of surgery in both ears by Dr. Mahoney, unsure what. Around 2004. Historical medical record shows right stapedectomy [place] [address] Castillo. Inside and outside of both ears are a little painful. There is no otorrhea. She feels that her hearing is okay overall. Believes she clenches her jaw due to her dentures. Rdaha zambrano [place] - [facility] 10/17/2024 11:30:45 OBGyn Episode No OBEpisode recorded.
== END 2025-05-19 15:35 | disposition home or self-care (01) ==
LOC: HO.US 15:34
PROVIDERS: Visit Provider Internal Medicine
DX: E04.1 Nontoxic single thyroid nodule (principal)
CPT/HCPCS: 76536

== ENCOUNTER → 2025-05-19 15:38 | Outpatient (BNV) | payer MEDICARE, SELFPAY | PROVIDERS: Visit Provider Radiology Diagnostic Radiology | DX: E04.2 Nontoxic multinodular goiter (principal) | CPT/HCPCS: 76536 ==